=== PATIENT | male | born 2000 | race African-American/Black ===

== ENCOUNTER 2025-01-22 02:37 | Emergency (ER) | payer SELFPAY ==
--- NOTE | ~2025-01-22 | XR_ITS ---
CLINICAL HISTORY: trauma, FB? fx 3 view right hand Comparison: None provided Findings: Bones intact. No dislocations. No significant loss of joint space or osteophytes. No erosions. No radiopaque foreign body. IMPRESSION: 1. No acute findings This document has been electronically signed by: Aime Lowery MD on 01/22/2025 07:37:20
--- NOTE | 2025-01-22 04:55 | ED_ITS ---
HPI - General Adult General Chief complaint: Wound/Laceration Stated complaint: Lac on Right Hand Time Seen by Provider: 01/22/25 04:54 Source: patient Limitations: no limitations History of Present Illness ED Provider: Juliet Galvan PA-C HPI narrative: 24-year-old male presents with right hand wound. Patient states he abruptly struck a bottle on a table, it subsequently broke, lacerating his right palm along the ulnar aspect. Unclear if tetanus is up-to-date. Sensation is intact, patient states he can not fully flex a part of his thumb and the 2nd digit. Related Data Previous Rx's ?Medication ?Instructions ?Recorded cephalexin 500 mg capsule 500 mg PO BID 7 days #14 cap s 01/22/25 Allergies Allergy/AdvReac Type Severity Reaction Status Date / Time No Known Allergies Allergy Verified 01/22/25 04:58 Review of Systems 2 Review of Systems: Yes all other systems are reviewed and are negative Constitutional: Constitutional: Denies fatigue and Denies fever(s) Musculoskeletal: Musculoskeletal: Reports arthralgias, Reports joint swelling, Denies numbness and Denies tingling Neurologic: Denies numbness and Denies tingling Endocrine: Endocrine: Denies fatigue PMF Past Medical History Attestation statement: The following information was validated with the patient. Physical Exam ED Vital Signs: Vital Signs - 24 hr 01/22/25 07:24 01/22/25 10:20 Temperature 97.4 F 98.0 F Pulse Rate 83 78 Respiratory Rate 18 18 Blood Pressure 128/81 122/77 Pulse Oximetry 95 97 Oxygen Delivery Method Room Air Room Air Const Other: Alert well-appearing Orientation/consciousness: patient oriented x3 Resp Effort & Inspection: normal respiratory effort Cardio Other: Normal peripheral perfusion Skin Other: Warm dry no rash Neuro General: patient oriented x3, gait normal, no focal motor deficits and CN's II- XI intact bilaterally Extrem Other: Approximately 4 cm irregular laceration deep to subcu tissue along ulnar/palmar aspect of right hand, pieces of skin are missing, regions of skin are macerated, minimally bleeding, neurovascularly intact. Patient can not flex at IP of thumb, can not flex at the PIP of 2nd digit. Remainder of range of motion intact with digits 3, 4, 5 Psych Other: Cooperative Course Reevaluation(s) Reevaluation #1: 7:38 AM 01/22/2025 (Dr. Cullen Gutierrez): Patient is presenting with tenderness versus nerve injury to his right hand, he has incision that was repaired by prior provider, we will update his tetanus status as he is not sure of his tetanus status, clinically he has FPL, 2nd and 3rd digit FDS and FDP involvement, I am questioning AIN, deep ulnar nerve involvement, I am contact the Orthopedics, x-ray without foreign bodies or fractures, I also spoke with Dr. Ferrer who contacted me regarding why MRI was ordered on this patient, I did state that I am in the process of cancelling it, and I also spoke with Ashley Doss to discuss the case and she will evaluate the patient at bedside 9:06 AM 01/22/2025 (Dr. Cullen Gutierrez): Jhon evaluated the patient and discussed case with Dr. Farooq who is away on vacation and it would not be able to take the patient to the OR until from my understanding but recommended that patient has an exploration earlier than that, [facility] is closed for transfers, I have sent a tiger text to Dr. Farooq who will get back to me to discuss follow up if I am not able to find anyone locally for this follow up or pt to end up in the OR by , as would be her availability at [email or web address] am reaching out to [place] next, pt updtated 9:51 AM 01/22/2025 (Dr. Cullen Gutierrez): Dr. Farooq evaluated patient at bedside, and also spoke with [place] provider for follow up tomorrow in the office, patient has been updated Medications Administered Discontinued Medications Generic Name Dose Route Start Last Admin Trade Name Freq PRN Reason Stop Dose Admin Cephalexin HCl 1,000 mg 01/22/25 09:53 01/22/25 10:16 Cephalexin 500 Mg Capsule PO 01/22/25 09:54 1,000 mg ONCE ONE Administration Diphtheria/Tetanus/Acell Pertussis 0.5 ml 01/22/25 04:58 01/22/25 06:41 Diphth,Pertus(Acell),Tet Adult 0.5 Ml Syringe IM 01/22/25 04:59 Not Given .ONCE ONE Diphtheria/Tetanus/Acell Pertussis 0.5 ml 01/22/25 07:27 01/22/25 07:44 Diphth,Pertus(Acell),Tet Adult 0.5 Ml Syringe IM 01/22/25 07:28 0.5 ml .ONCE ONE Administration Cefazolin Sodium 2 gm/ Sodium 100 mls @ 200 mls/hr 01/22/25 06:30 01/22/25 08:10 Chloride IV 01/22/25 06:59 Infused ONCE ONE Infusion Ketorolac Tromethamine 15 mg 01/22/25 07:46 01/22/25 08:15 Ketorolac Tromethamine 15 Mg/Ml Vial IVPUSH 01/22/25 07:47 15 mg ONCE ONE Administration Procedures Laceration Laceration 1: Site: hand Side (If applicable): right Size (cm): 4 Description: irregular Depth: simple, single layer Local Anesthetic: lidocaine 1% and with epi Amount of anesthesia used (mL): 10 Pre-repair: wound explored and irrigated extensively Skin layer closed with: nylon Size (cm): 3-0 Number of sutures: 9 Technique: horizontal mattress Medical Decision Making Medical Decision Making [facility] Narrative: 24-year-old male presents with right hand wound. Patient states he abruptly struck a bottle on a table, it subsequently broke, lacerating his right palm along the ulnar aspect. Unclear if tetanus is up-to-date. Sensation is intact, patient states he can not fully flex a part of his thumb and the 2nd digit. No chronic issues History: Per patient I have considered the following differential diagnoses: Fracture, dislocation, foreign body, tendon injury, nerve injury, muscular injury, laceration Plan: We will repair the wound, I am concerned for injury to deeper structures, we will obtain advanced imaging. Updating tetanus, giving 2 g of Ancef. We will obtain screening labs I have independently reviewed the following tests: Labs: No leukocytosis, not anemic, no electrolyte abnormality noted X-ray hand: Pending at the time of sign-out Potential MRI hand: Pending at the time of sign-out Differential Diagnosis Differential Diagnoses: The differential diagnosis associated with the presentation includes See medical decision-making Admission/Observation Consideration of admission/observation: Escalation of care including admission/observation considered Unclear at this time Consult Healthcare Provider Management of the patient was discussed with: Implementation Specialist Payroll Hand surgery Lab Data [facility] Lab Attestation statement: I reviewed the patient's lab results. 01/22/25 05:10 01/22/25 05:10 Labs: Lab Results 01/22/25 Range/Units 05:10 WBC 5.6 (4.8-10.8) X10*3/uL RBC 5.42 (4.60-5.80) X10*6/uL Hgb 14.6 (14.0-18.0) g/dl Hct 43.4 (42.0-52.0) % MCV 80.1 (80.0-98.0) fL MCH 26.9 L (27.0-33.0) pg MCHC 33.6 (31.0-36.0) g/dl RDW 14.3 (11.0-16.0) % Plt Count 293 (160-400) X10*3/uL MPV 8.6 L (9.4-12.4) fL Immature Gran % (Auto) 0.4 (0.0-0.4) % Neut % (Auto) 63.2 (45-73) % Lymph % (Auto) 29.7 (20-40) % Crenshaw % (Auto) 5.6 (2-11) % Eos % (Auto) 0.9 (0-4) % Baso % (Auto) 0.2 (0-2) % Lymph # (Auto) 1.7 (1.2-4.9) X10*3/uL Crenshaw # (Auto) 0.3 (0.1-1.2) X10*3/uL Eos # (Auto) 0.1 (0.0-0.4) X10*3/uL Baso # (Auto) 0.0 (0.0-0.2) X10*3/uL Abs Immat Gran (auto) 0.02 (0.00-0.03) X10*3/uL Absolute Neuts (auto) 3.5 (2.0-8.3) x10*3/uL Absolute Nucleated RBC 0.000 (0.0-0.012) X10*3/uL Nucleated RBC % (auto) 0.0 (0.0-0.2) /100WBC Sodium 145 (135-145) mmol/L Potassium 4.2 (3.3-5.1) mmol/L Chloride 110 H (96-108) mmol/L Carbon Dioxide 22 (22-29) mmol/L Anion Gap 17 (12-20) BUN 9 (9-16) mg/dL Creatinine 1.03 (0.5-1.4) mg/dL Estim Creat Clear Calc TNP Estimated GFR > 60 Random Glucose 96 (60-115) mg/dL Calcium 9.4 (8.4-10.2) mg/dL Magnesium 2.3 (1.6-2.6) mg/dL Total Bilirubin 0.2 (0.0-1.0) mg/dL AST 36 (5-37) U/L ALT 38 (0-40) U/L Alkaline Phosphatase 54 (39-117) U/L Total Protein 8.1 H (6.5-8.0) g/dL Albumin 4.9 (3.5-5.0) g/dL Discharge Plan Discharge Clinical Impression: Laceration of hand, right Patient Disposition: Home, Self-Care Instructions: Laceration (ED) Additional Instructions: [phone] Dr. Benedicto Magallanes is a hand specialist who is going to see you in the office tomorrow they will be contacting you, in the meantime continue with the antibiotics starting tomorrow, Tylenol 975 mg every 6 hours around the clock for pain, or ibuprofen 400 mg every 6 hours for additional pain control, keep dressing in place until you see the surgeon tomorrow It is imperative that you see a surgeon, it looks like you have injury to your median nerve, you will likely require a surgical repair Inability to follow up or any other concerns come back to the ER Prescriptions: New cephalexin 500 mg capsule 500 mg PO BID 7 Days Qty: 14 0RF Interventions: ED Discharge Assessment Last Done: 01/22/25 10:20 Discharge Date/Time: 01/22/25 10:20 Print Language: Bermudian
[2025-01-22 05:14] LABS: Hematocrit 43.4 % (42.0-52.0); Hemoglobin 14.6 g/dl (14.0-18.0); Imm Gran Abs Auto 0.02 X10*3/uL (0.00-0.03); Imm Gran Pct Auto 0.4 % (0.0-0.4); Lymphocytes Absolute Auto 1.7 X10*3/uL (1.2-4.9); MANUAL DIFF FLAG NO; Mean Corpuscular HGB Conc 33.6 g/dl (31.0-36.0); Mean Corpuscular Hemoglobin 26.9 pg (27.0-33.0); Mean Corpuscular Volume 80.1 fL (80.0-98.0); NRBC Abs Auto 0.000 X10*3/uL (0.0-0.012); NRBC Pct Auto 0.0 /100WBC (0.0-0.2); Platelet Count 293 X10*3/uL (160-400); Red Blood Count 5.42 X10*6/uL (4.60-5.80); White Blood Count 5.6 X10*3/uL (4.8-10.8)
--- NOTE | 2025-01-22 05:20 | PC.NURSE ---
IV placed in LAC. Line intact and patent PT tolerated well
[2025-01-22 05:46] LABS: Albumin Level 4.9 g/dL (3.5-5.0); Alkaline Phosphatase 54 U/L (39-117); Anion Gap 17 (12-20); Aspartate Amino Transferase 36 U/L (5-37); Blood Urea Nitrogen 9 mg/dL (9-16); Calcium 9.4 mg/dL (8.4-10.2); Carbon Dioxide 22 mmol/L (22-29); Chloride 110 mmol/L (96-108); Estimated Glomerular Filt Rate > 60; Magnesium 2.3 mg/dL (1.6-2.6); Potassium 4.2 mmol/L (3.3-5.1); Sodium 145 mmol/L (135-145); Total Protein 8.1 g/dL (6.5-8.0)
[2025-01-22 05:55] LABS: Alanine Aminotransferase 38 U/L (0-40)
[2025-01-22 07:24] VITALS: BP 128/81; PULSE 83; RESP 18; TEMP 36.3; O2SAT 95
[2025-01-22] MEDS: Diphth,Pertus(ACell),Tet Adult 0.5 ML SYRINGE IM (07:44)
--- NOTE | 2025-01-22 08:16 | PC.NURSE ---
patient a&ox3, rr equal/non labored, rt hand dressing c/d/i, pt c/o 09/23 pain- pt medicated with abx, pain meds and tetanus per order, MRI screening form completed, call ren within reach, plan of care ongoing
--- NOTE | 2025-01-22 08:47 | P.CONOP_ITS ---
History of Present Illness HPI Consult date: 01/22/25 Chief complaint: Lac on Right Hand Narrative: 24-year-old male seen in the emergency department this morning with a right hand wound. He abruptly struck a glass bottle on a table and it broke causing a laceration in the right palm. Patient presented to the emergency department for evaluation and treatment. Due to the extent of his injuries orthopedics was consulted for recommendations. Patient states there was numbness at the onset of the injury. He also states he has difficulty flexing the index and thumb. While in the emergency department the wounds were irrigated and closed. Patient is right-hand dominant. Review of Systems 2 Review of Systems: Yes all other systems are reviewed and are negative PMFSH Social History Social History Advance Directives: No Advance Directives Information Provided: Yes Meds Allergies Allergy/AdvReac Type Severity Reaction Status Date / Time No Known Allergies Allergy Verified 01/22/25 04:58 Physical Exam 2 Vital Signs: Vital Signs: Last Vital Signs Temp 97.4 F 01/22/25 07:24 Pulse 83 01/22/25 07:24 Resp 18 01/22/25 07:24 BP 128/81 01/22/25 07:24 Pulse Ox 95 01/22/25 07:24 O2 Del Method Room Air 01/22/25 07:24 Const: General: cooperative and no acute distress O rientation/consciousness: patient oriented x3 Resp: Effort & Inspection: normal respiratory effort and able to speak in complete sentences Cardio: Peripheral pulses: Peripheral pulses 2+ throughout Neuro: General: patient oriented x3 Extrem: Other: Approximately 4 cm irregular laceration deep to subcu tissue along thenar eminence/palmar aspect of right hand Patient can not flex at IP of thumb, can not flex at the PIP of 2nd digit. Remainder of range of motion intact with digits 3, 4, 5. Numbness along the radial digital nerve distribution of the index and thumb. Results Labs 01/22/25 05:10 01/22/25 05:10 Labs: Abnormal lab results 01/22/25 Range/Units 05:10 MCH 26.9 L (27.0-33.0) pg MPV 8.6 L (9.4-12.4) fL Chloride 110 H (96-108) mmol/L Total Protein 8.1 H (6.5-8.0) g/dL H & H 01/22/25 Range/Units 05:10 Hgb 14.6 (14.0-18.0) g/dl Hct 43.4 (42.0-52.0) % All other labs normal. Diagnostic results Wrist/Hand x-ray: image reviewed (IMPRESSION: 1. No acute findings) Assessment and Plan (1) Laceration of hand, right: Status: Acute Plan I discussed the injury with Dr. Farooq over the phone. Due to the urgency of the injury being a flexor tendon laceration and possible nerve injury this is time sensitive for intervention. At this time her recommendation is to discharge the patient and have them follow-up with based state for potential surgical intervention. I did express the level of urgency to the ED provider that this is not something that should wait a week for a follow up. This should be addressed in the next 3-5 days. Procedures Date of Service Date of Service: 01/22/25
[2025-01-22 10:20] VITALS: BP 122/77; PULSE 78; RESP 18; TEMP 36.7; O2SAT 97
== END 2025-01-22 10:20 | disposition home or self-care (01) ==
PROVIDERS: Physician Assistant Medical; Emergency Provider Emergency Medicine
DX: S61.411A Laceration without foreign body of right hand, initial encounter (principal); Z23 Encounter for immunization; W25.XXXA Contact with sharp glass, initial encounter; Y93.9 Activity, unspecified; Y92.9 Unspecified place or not applicable; Y99.9 Unspecified external cause status
CPT/HCPCS: 12002; 36415; 73130; 80053; 83735; 85025; 90715; 96365; 96372; 96375; 99284; J0690; J1885

== ENCOUNTER → 2025-01-22 03:45 | Outpatient (BNV) | payer SELFPAY | PROVIDERS: Emergency Provider Emergency Medicine; Visit Provider Physician Assistant | DX: S61.411A Laceration without foreign body of right hand, initial encounter (principal) | CPT/HCPCS: 99223 ==

== ENCOUNTER → 2025-01-22 06:27 | Outpatient (BNV) | payer SELFPAY | PROVIDERS: Emergency Provider Emergency Medicine; Visit Provider Radiology Diagnostic Radiology | DX: S61.411A Laceration without foreign body of right hand, initial encounter (principal); W26.8XXA Contact with other sharp object(s), not elsewhere classified, initial encounter | CPT/HCPCS: 73130 ==